=== PATIENT | female | born 1940 | race Caucasian/White ===

== ENCOUNTER → 2017-10-14 11:36 | Outpatient (CLI) | payer MEDICARE, OTHER, SELFPAY ==
[2017-10-14 12:09] LABS: Add Manual Diff / Slide Review NO; Basophils Percent Auto 0.9 % (0-2); Hematocrit 37.9 % (36-46); Hemoglobin 13.1 g/dL (12.0-16.0); Lymphocytes Percent Auto 30.1 % (25-40); Mean Corpuscular HGB Conc 34.6 % (30-36); Mean Corpuscular Hemoglobin 31.3 PG (26-34); Mean Corpuscular Volume 90.6 fL (80-100); Monocytes Percent Auto 6.6 % (3-14); Neutrophils Absolute Auto 3300 /uL (3000-5900); Neutrophils Percent Auto 60.4 % (50-75); Platelet Count 216 X10^3/uL (150-400); Red Blood Cell Count 4.18 X10^6/uL (4.0-5.2); Red Cell Distribution Width 14.9 % (11.6-14.8); White Blood Cell Count 5.4 X10^3/uL (4.5-11.0)
[2017-10-14 12:11] LABS: Reticulocyte Count, Percent 1.9 % (1.06-2.63)
[2017-10-14 13:50] LABS: HEMOLYSIS < 15 (0-50); Iron 91 ug/dL (37-170)
[2017-10-14 13:54] LABS: Albumin 4.3 g/dL (3.5-5.0); BUN Creatinine Ratio 24.3 (6-22); Blood Urea Nitrogen 17 mg/dL (7-17); Calcium 9.8 mg/dL (8.4-10.2); Carbon Dioxide 29 mmol/L (22-32); Chloride 103 mmol/L (98-107); Estimated Glomerular Filt Rate > 60.0 mL/min (>60); Glucose 92 mg/dL (80-110); HEMOLYSIS < 15 (0-50); Potassium 4.4 mmol/L (3.4-5.1); Sodium 143 mmol/L (137-145)
[2017-10-14 14:01] LABS: Percent Iron Saturation 30 % (15-50); Total Iron Binding Capacity 304 ug/dL (265-497); Transferrin 243 mg/dL (206-381)
[2017-10-14 14:02] LABS: Prealbumin 24.9 mg/dL (17.6-36.0)
[2017-10-14 14:27] LABS: Ferritin 55.4 ng/mL (11.1-264)
[2017-10-14 14:41] LABS: Vitamin B12 381 pg/mL (239-931)
[2017-10-20 13:27] LABS: Ionized Calcium 4.9
== END ==
PROVIDERS: Visit Provider Internal Medicine Gastroenterology
DX: D64.9 Anemia, unspecified (principal); K56.609 Unspecified intestinal obstruction, unspecified as to partial versus complete obstruction; D64.0 Hereditary sideroblastic anemia
CPT/HCPCS: 36415; 80048; 82040; 82330; 82607; 82728; 83540; 83550; 84134; 85025; 85045

== ENCOUNTER → 2017-10-15 11:07 | Outpatient (CLI) | payer MEDICARE, OTHER, SELFPAY ==
--- NOTE | 2017-10-15 | DI.MG.S_ITS ---
BILATERAL DIGITAL SCREENING MAMMOGRAM 3D/2D WITH CAD: 10/15/2017 CLINICAL: Routine screening. Comparison is made to exams dated: 01/01/2016 mammogram, 12/24/2015 mammogram, and 04/16/2014 mammogram - Located Within [facility]. The tissue of both breasts is heterogeneously dense. This may lower the sensitivity of mammography. Current study was also evaluated with a Computer Aided Detection (CAD) system. No significant masses, calcifications, or other findings are seen in either breast. There has been no significant interval change. IMPRESSION: NEGATIVE There is no mammographic evidence of malignancy. A 1 year screening mammogram is recommended. This exam was interpreted at Station ID: [id number]. NOTE: For mammograms, a report in lay terms will be sent to the patient. Approximately 15% of breast malignancies will not be visualized mammographically. In the management of a palpable breast mass, a negative mammogram must not discourage biopsy of a clinically suspicious lesion. Electronically Signed By: Alberto leung/[email or web address]:10/15/2017 15:42:55 letter sent: Normal Exam ACR BI-RADS Category 1: Negative [id number]
== END ==
PROVIDERS: Visit Provider Family Medicine
DX: Z12.31 Encounter for screening mammogram for malignant neoplasm of breast (principal)
CPT/HCPCS: 77063; 77067

== ENCOUNTER → 2018-09-01 11:06 | Outpatient (CLI) | payer MEDICARE, OTHER, SELFPAY ==
[2018-09-01 12:09] LABS: Add Manual Diff / Slide Review NO; Basophils Absolute Auto 0 /uL (0-100); Basophils Percent Auto 0.4 % (0-2); Eosinophils Absolute Auto 0 /uL (0-450); Eosinophils Percent Auto 0.5 % (2-4); Hematocrit 37.5 % (36-46); Hemoglobin 12.4 g/dL (12.0-16.0); Lymphocytes Absolute Auto 1600 /uL (1100-4500); Lymphocytes Percent Auto 16.7 % (25-40); Mean Corpuscular HGB Conc 33.1 % (30-36); Mean Corpuscular Hemoglobin 29.9 PG (26-34); Mean Corpuscular Volume 90.5 fL (80-100); Monocytes Absolute Auto 600 /uL (0-900); Monocytes Percent Auto 6.3 % (3-14); Neutrophils Absolute Auto 7500 /uL (1500-7000); Neutrophils Percent Auto 76.1 % (50-75); Platelet Count 338 X10^3/uL (150-400); Red Blood Cell Count 4.15 X10^6/uL (4.0-5.2); Red Cell Distribution Width 15.1 % (11.6-14.8); White Blood Cell Count 9.8 X10^3/uL (4.5-11.0)
[2018-09-01 12:25] LABS: Alanine Aminotransferase 23 IU/L (9-52); Albumin 4.1 g/dL (3.5-5.0); Alkaline Phosphatase 121 U/L (38-126); Aspartate Aminotransferase 23 IU/L (14-36); Bilirubin Total 0.4 mg/dL (0.2-1.3); Blood Urea Nitrogen 21 mg/dL (7-17); Calcium 9.3 mg/dL (8.4-10.2); Carbon Dioxide 29 mmol/L (22-32); Chloride 102 mmol/L (98-107); Cholesterol 154 mg/dL (140-199); Estimated Glomerular Filt Rate > 60.0 mL/min (>60); Glucose 85 mg/dL (80-110); HDL Cholesterol 37 mg/dL (40-60); HEMOLYSIS < 15 (0-50); LDL Cholesterol Calculated 95 mg/dL (<100); Potassium 4.6 mmol/L (3.4-5.1); Sodium 140 mmol/L (137-145); Total Protein 8.1 g/dL (6.3-8.2); Triglycerides 111 mg/dL (35-150)
[2018-09-01 13:07] LABS: TSH w/ Reflex to FT4 1.41 uIU/mL (0.47-4.68)
== END ==
PROVIDERS: PCP Internal Medicine; Visit Provider Internal Medicine
DX: R63.4 Abnormal weight loss (principal); E78.2 Mixed hyperlipidemia
CPT/HCPCS: 36415; 80053; 80061; 84443; 85025

== ENCOUNTER → 2018-09-15 13:38 | Outpatient (CLI) | payer MEDICARE, OTHER, SELFPAY ==
--- NOTE | 2018-09-15 | DI.CT.S_ITS ---
PROCEDURE: CT KIDNEY URETER BLADDER (KUB) INDICATIONS: Cardiac arrhythmia Left upper quadrant pain TECHNIQUE: Noncontrast 5 mm thick sections acquired from the diaphragms to the symphysis. 5 mm thick coronal and sagittal reformats were then performed. For radiation dose reduction, the following was used: automated exposure control, adjustment of mA and/or kV according to patient size. COMPARISON: [facility], CT, CT CHEST WO CON, 09/15/2018, 13:44. [facility], CT, THORAX WITHOUT CONTRAST, 10/23/2008, 9:58. FINDINGS: Image quality: Excellent. Lung bases: Lung bases are unchanged, with chronic lung disease and discussed during chest CT report earlier today. Heart size is normal. Urinary system: Both kidneys are normal in size. No kidney stones. No hydronephrosis or perinephric fat stranding. Both ureters appear non-dilated throughout their expected courses. Bladder wall thickness is normal; no calcified bladder stones. Other solid organs: Liver is normal in size. Multiple hepatic cysts again seen. Gallbladder appears normal. Pancreas is normal in contours. Spleen is normal in size. No adrenal nodules. Peritoneum and bowel: Unenhanced bowel loops demonstrate normal wall thickness and caliber. No free fluid or air. Nodes and vessels: No retroperitoneal or mesenteric adenopathy by size criteria. Aorta and inferior vena cava are normal in caliber. Abdominal wall: No ventral hernias. Pelvis: No free pelvic fluid. No inguinal hernias or adenopathy. Bones: No suspicious bony lesions. No vertebral body compression fractures. IMPRESSION: Source of chronic left-sided flank pain radiating anteriorly is not seen. Chronic lung disease, multiple stable appearing hepatic water density cysts again noted. Dictated by: Haroon London M.D. on 09/15/2018 at 16:04 Approved by: Haroon London M.D. on 09/15/2018 at 16:30
--- NOTE | 2018-09-15 | DI.CT.S_ITS ---
PROCEDURE: CT CHEST WO CON INDICATIONS: Cardiac arrhythmia Left upper quadrant pain TECHNIQUE: Noncontrast 5 mm thick sections acquired from the pulmonary apices to the posterior costophrenic angles. 7 mm thick coronal and sagittal MIP reformats were then acquired. For radiation dose reduction, the following was used: automated exposure control, adjustment of mA and/or kV according to patient size. COMPARISON: [facility], CT, CHEST HIGH RESOLUTION, 01/29/2012, 12:20. [facility], CT, CT KIDNEY URETER BLADDER (KUB), 09/15/2018, 13:44. FINDINGS: Image quality: Excellent. Lungs and pleura: No acute air space opacities. There is a pattern of patchy bilateral interstitial and alveolar lung disease, with areas of superimposed centrilobular emphysema and anterior bronchiectasis present within the right middle lobe predominantly in the medial segment and also the lingular segment of the left upper lobe near the left ventricular apex. A growing mass lesion is not found. An area of focal pneumonia as the explanation for the asymmetric left upper quadrant is not seen. There is no abnormality below the left hemidiaphragm to explain left upper quadrant pain. No pleural effusions or pneumothorax. Central and peripheral airways are patent and normal in caliber. Mediastinum: Heart size is normal. No pericardial effusion. No mediastinal adenopathy by size criteria. Thoracic aorta and central pulmonary arteries are normal in size. Esophagus is normal in caliber. No hiatal hernia. Bones and chest wall: No suspicious bony lesions. No vertebral body compression fractures. No axillary or supraclavicular adenopathy by size criteria. Thyroid gland is poorly visualized by this noncontrast technique. Abdomen: Visualized upper abdominal solid organs and bowel loops appear normal in the absence of contrast. Hepatic multiple cysts are again noted of varying size from millimeters to 5.5 cm. IMPRESSION: An appreciable change from the chronic lung disease pattern present 01/29/12 and also with reference to the recent CT KUB study 09/15/18 earlier same day has not developed. COPD, centrilobular emphysema, bronchiectasis, and both interstitial and alveolar focal infiltration is again identified from 2011. A source of asymmetric left upper quadrant pain is not found. Dictated by: Haroon London M.D. on 09/15/2018 at 15:39 Approved by: Haroon London M.D. on 09/15/2018 at 15:44
--- NOTE | 2018-09-15 | DI.ECHO.S_ITS ---
[facility]+ [facility] +---------+ : : [address] : [place] : : : : [id number] : : : : Phone: [phone]+ Echocardiogram Report + + :Name: BARB SINGH Study Date: 09/15/2018 Height: 66 in : :[facility] Weight: 126 lb : : Gender: Female BSA: 1.6 m2 : :: 1940 Age: 77 yrs BP: 138/66 mmHg: :Reason For Study: Arrhythmia : : Performed By: Mery Vallejo : :Referring: ELSY BRICEÑO : + + Interpretation Summary Left ventricular systolic function is low normal with the ejection fraction visually estimated to be 50-60% with considerable [id number] variability because of the frequent PVCs. There are no focal wall motion abnormalities. Diastolic parameters suggest probable normal left ventricular diastolic function and normal filling pressures. The right ventricle grossly appears normal in size with probable normal systolic function. The right ventricular systolic pressure is estimated to be at least 30 mmHg based on an estimated right atrial pressure of 3 mm Hg. Both atria are normal in size. There is a flat closure plane of the the mitral valve leaflets but no evidence of mitral valve prolapse. There is mild to moderate mitral regurgitation with an eccentric jet of mitral regurgitation that is directed posteriorly. The aortic valve opens well with mild to moderate aortic regurgitation. There is mild tricuspid regurgitation. The aortic root is borderline dilated and the ascending aorta is mildly enlarged. The heart rate was 46-94 bpm with frequent PVCs during the exam. Multiple large hepatic cysts are noted within the liver. Consider formal abdominal ultrasound if clinically indicated. Procedure: A two-dimensional transthoracic echocardiogram with color flow and Doppler was performed. The study quality was technically good. There is no prior echocardiogram noted for this patient. The heart rate ranged between 46- 84 bpm during the study. The patient had frequent PVCs during the exam. Left Ventricle: The left ventricle is normal in size. There is normal left ventricular wall thickness. Left ventricular systolic function is low normal. Left ventricular ejection fraction is estimated to be 50-60% with considerable [id number] variability because of the frequent PVCs. There are no focal wall motion abnormalities. Diastolic parameters suggest probable normal left ventricular diastolic function and normal filling pressures. Right Ventricle: The right ventricle grossly appears normal in size with probable normal systolic function. Atria: Both atria are normal in size. The interatrial septum is intact with no evidence for an atrial septal defect. Mitral Valve: The mitral valve leaflets appear borderline thickened, but open well. There is a flat closure plane of the the mitral valve leaflets. There is no evidence of mitral valve prolapse. There is mild to moderate mitral regurgitation. There is an eccentric jet of mitral regurgitation that is directed posteriorly. Aortic Valve: The aortic valve is trileaflet. The aortic valve opens well. There is mild to moderate aortic regurgitation. Tricuspid Valve: The tricuspid valve is normal in structure and function. There is mild tricuspid regurgitation. The right ventricular systolic pressure is estimated to be at least 30 mmHg based on an estimated right atrial pressure of 3 mm Hg. Pulmonic Valve: The pulmonic valve is not well seen, but is grossly normal. There is trace pulmonic regurgitation. Great Vessels: The aortic root is borderline dilated. The ascending aorta is mildly enlarged. The aortic arch is normal in size. The inferior vena cava appeared normal. Pericardium/ Pleura There is no pericardial effusion. There is no pleural effusion. MMode/2D Measurements & Calculations LVIDd: 4.9 cm Ao root diam: 3.8 cm LVIDs: 2.8 cm Aortic Jxn: 2.9 cm FS: 42.4 % asc Aorta Diam: 3.5 cm EPSS: 0.67 cm Ao Arch Diam (Prox Trans): 2.6 cm IVSd: 0.89 cm LVPWd: 0.86 cm LV moses. diameter/BSA (cm/m^2): 3.0 LV sys. diameter/BSA (cm/m^2): 1.7 LA dimension: 3.4 cm RA long axis: 3.9 cm LA A2 area: 17.2 cm2 RA area: 13.5 cm2 LA A4 area: 14.6 cm2 RA vol: 39.5 ml LA length (vol): 4.5 cm RA : 24.0 ml/m2 LA vol: 48.0 ml IVC diam: 1.5 cm LA vol index: 29.2 ml/m2 RVDd major: 5.9 cm RVD1 (basal): 3.1 cm RVD2 (mid): 2.7 cm Doppler Measurements & Calculations Ao V2 max: 114.7 cm/sec AI P1/2t: 339.5 msec Ao V2 mean: 76.5 cm/sec AI dec slope: 369.3 cm/sec2 Ao max P.3 mmHg Ao mean P.7 mmHg Ao V2 VTI: 22.5 cm MV E max aj: 56.5 cm/sec TR max aj: 259.9 cm/sec MV A max aj: 74.1 cm/sec TR max P.0 mmHg MV E/A: 0.76 PA V2 max: 89.1 cm/sec Med Peak E' Aj: 4.7 cm/sec PA V2 mean: 62.2 cm/sec E/E' med: 11.9 PA mean P.8 mmHg Lat Peak E' Aj: 3.8 cm/sec PA Accel Time: 0.11 sec E/E' lat: 14.9 E/e' average: 13.4 MV dec time: 0.28 sec MV P1/2t: 81.7 msec MV P1/2t max aj: 57.9 cm/sec MVA(P1/2t): 2.7 cm2 Reading Physician:ADAN
== END ==
PROVIDERS: PCP Internal Medicine; Visit Provider Internal Medicine
DX: I08.3 Combined rheumatic disorders of mitral, aortic and tricuspid valves (principal); I49.9 Cardiac arrhythmia, unspecified; R10.12 Left upper quadrant pain; K76.89 Other specified diseases of liver; I77.89 Other specified disorders of arteries and arterioles; J43.2 Centrilobular emphysema; J47.9 Bronchiectasis, uncomplicated; J84.9 Interstitial pulmonary disease, unspecified
CPT/HCPCS: 71250; 74176; 93306

== ENCOUNTER → 2018-09-28 09:12 | Outpatient (CLI) | payer MEDICARE, OTHER, SELFPAY | PROVIDERS: PCP Internal Medicine; Visit Provider Internal Medicine Critical Care Medicine | DX: J47.1 Bronchiectasis with (acute) exacerbation (principal) | CPT/HCPCS: 87070; 87116; 87205 ==

== ENCOUNTER → 2018-09-29 08:00 | Outpatient (CLI) | payer MEDICARE, OTHER, SELFPAY | PROVIDERS: PCP Internal Medicine; Visit Provider Internal Medicine Critical Care Medicine | DX: J47.1 Bronchiectasis with (acute) exacerbation (principal) | CPT/HCPCS: 87070; 87116; 87205 ==

== ENCOUNTER → 2018-09-30 09:38 | Outpatient (CLI) | payer MEDICARE, OTHER, SELFPAY | PROVIDERS: PCP Internal Medicine; Visit Provider Internal Medicine Critical Care Medicine | DX: J47.1 Bronchiectasis with (acute) exacerbation (principal) | CPT/HCPCS: 87070; 87116; 87205 ==

== ENCOUNTER → 2019-02-02 10:28 | Outpatient (CLI) | payer MEDICARE, OTHER, SELFPAY ==
--- NOTE | 2019-02-02 | DI.US.S_ITS ---
PROCEDURE: US PELVIC COMPLETE INDICATIONS: ABNORMAL UTERINE AND VAGINAL BLEEDING, UNSPECIFIED Additional history: Hysterectomy in 2010. Prior oophrectomy. Unsure if remaining ovary. TECHNIQUE: Real-time scanning was performed of the pelvic organs, with image documentation. Additional endovaginal scanning was necessary due to incomplete visualization of the adnexal and endometrial structures by transabdominal scanning. COMPARISON: CT KUB 09/15/2018. FINDINGS: Transabdominal scanning: Limited scanning through the kidneys shows no hydronephrosis. No pathologic free abdominal or pelvic fluid. Simple cyst at the inferior pole of the right kidney measuring a 2.4 centers. Endovaginal scanning: Patient reports tenderness with insertion of the transvaginal probe. Uterus: Surgically absent. Ovaries: No ovary identified. No mass or cystic lesion. IMPRESSION: Negative exam. No free fluid. Uterus is surgically absent. Vaginal cuff is unremarkable. The ovaries are presumed absent and not identified. Dictated by: Pepe Conteh M.D. on 02/02/2019 at 12:07 Approved by: Pepe Conteh M.D. on 02/02/2019 at 12:13
== END ==
PROVIDERS: PCP Internal Medicine; Visit Provider Internal Medicine
DX: N93.9 Abnormal uterine and vaginal bleeding, unspecified (principal); N28.1 Cyst of kidney, acquired; Z90.710 Acquired absence of both cervix and uterus
CPT/HCPCS: 76830; 76856

== ENCOUNTER → 2019-04-11 11:35 | Outpatient (CLI) | payer MEDICARE, OTHER, SELFPAY ==
--- NOTE | 2019-04-11 11:39 | DI.CT.S_ITS ---
PROCEDURE: CT CHEST WO CON INDICATIONS: Chronic obstructive pulmonary disease with (acute) TECHNIQUE: Noncontrast 2.0-2.5 mm thick sections acquired from the pulmonary apices to the posterior costophrenic angles. 7 mm thick axial MIP and 5 mm coronal and sagittal reformats were then acquired. A low radiation dose technique was utilized. COMPARISON: [facility], CT, CT KIDNEY URETER BLADDER (KUB), 09/15/2018, 13:44. [facility], CT, CHEST HIGH RESOLUTION, 01/29/2012, 12:20. [facility], CT, THORAX WITHOUT CONTRAST, 10/23/2008, 9:58. [facility], CR, CHEST 2 VIEW, 10/14/2016, 18:42. [facility], CT, CT CHEST WO CON, 09/15/2018, 13:44. FINDINGS: Image quality: Diagnostic, given the low radiation dose technique. Lungs and pleura: There are innumerable nodules bilaterally. Many nodules demonstrate tree-in-bud configuration. There is associated cystic bronchiectasis bilaterally, predominantly involving the right middle lobe and lingula. The CT findings are most compatible with sequelae of granulomatous infections. There may be mild underlying centrilobular emphysema. No acute airspace opacity. No enlarging mass. Compared to the last exam on 09/15/2018, there is no significant change. Mediastinum: Heart size is normal. No pericardial effusion. Borderline enlarged mediastinal lymph nodes are likely reactive. Thoracic aorta and central pulmonary arteries are normal in size. Esophagus is normal in caliber. No hiatal hernia. Bones and chest wall: No suspicious bony lesions. Mild vertebral body compression fracture of L1, which is new since 09/15/2018. No axillary or supraclavicular adenopathy by size criteria. Thyroid gland is normal. Nodular appearance of breasts bilaterally. Abdomen: There are multiple cysts in liver. Visualized upper abdomen solid organs and bowel loops appear normal in the absence of contrast. IMPRESSION: 1. Innumerable pulmonary nodules bilaterally with tree-in-bud configuration and associated bronchiectasis predominantly involving the right middle lobe and lingula, most compatible with sequelae of prior infections. There may be mild underlying centrilobular emphysema. 2. Borderline-sized reactive lymph nodes in mediastinum. 3. Multiple hepatic cysts. 4. Nodularity of breast tissue bilaterally. Please correlate with findings on mammography. 5. Mild compression fracture of L1, new since 09/15/2018. Dictated by: Carrol Dai M.D. on 04/11/2019 at 11:52 Transcribed by: [email or web address] on 04/11/2019 at 12:16 Approved by: Carrol Dai M.D. on 04/11/2019 at 18:03
== END ==
PROVIDERS: PCP Internal Medicine; Referring Provider Psychiatry & Neurology Forensic Psychiatry; Visit Provider Internal Medicine
DX: J44.0 Chronic obstructive pulmonary disease with (acute) lower respiratory infection (principal); R91.8 Other nonspecific abnormal finding of lung field; K76.89 Other specified diseases of liver; N64.89 Other specified disorders of breast; M48.56XA Collapsed vertebra, not elsewhere classified, lumbar region, initial encounter for fracture
CPT/HCPCS: 71250

== ENCOUNTER → 2019-10-25 12:41 | Outpatient (CLI) | payer MEDICARE, OTHER, SELFPAY ==
[2019-10-25 13:38] LABS: Add Manual Diff / Slide Review NO; Basophils Absolute Auto 0 /uL (0-100); Basophils Percent Auto 1.1 % (0-2); Eosinophils Absolute Auto 100 /uL (0-450); Eosinophils Percent Auto 2.3 % (2-4); Hematocrit 39.7 % (36-46); Lymphocytes Absolute Auto 1500 /uL (1100-4500); Lymphocytes Percent Auto 37.5 % (25-40); Mean Corpuscular HGB Conc 35.2 % (30-36); Mean Corpuscular Hemoglobin 32.4 PG (26-34); Mean Corpuscular Volume 91.9 fL (80-100); Monocytes Absolute Auto 300 /uL (0-900); Monocytes Percent Auto 8.1 % (3-14); Neutrophils Absolute Auto 2000 /uL (1500-7000); Platelet Count 213 X10^3/uL (150-400); Red Blood Cell Count 4.32 X10^6/uL (4.0-5.2); Red Cell Distribution Width 13.9 % (11.6-14.8)
[2019-10-25 14:01] LABS: Alanine Aminotransferase 15 IU/L (<35); Albumin 4.5 g/dL (3.5-5.0); Albumin Globulin Ratio 1.7 (1.0-2.8); Alkaline Phosphatase 53 U/L (38-126); Aspartate Aminotransferase 23 IU/L (14-36); BUN Creatinine Ratio 25.7 (6-22); Bilirubin Total 0.7 mg/dL (0.2-1.3); Blood Urea Nitrogen 19 mg/dL (7-17); Calcium 9.9 mg/dL (8.4-10.2); Carbon Dioxide 29 mmol/L (22-32); Chloride 105 mmol/L (98-107); Cholesterol 199 mg/dL (140-199); Estimated Glomerular Filt Rate > 60.0 mL/min (>60); Globulin 2.7 g/dL (1.7-4.1); Glucose 90 mg/dL (80-110); HDL Cholesterol 68 mg/dL (40-60); HEMOLYSIS < 15 (0-50); LDL Cholesterol Calculated 107 mg/dL (<100); Potassium 4.3 mmol/L (3.4-5.1); Sodium 141 mmol/L (137-145); Total Protein 7.2 g/dL (6.3-8.2); Triglycerides 120 mg/dL (35-150)
[2019-10-25 14:30] LABS: TSH w/ Reflex to FT4 1.96 uIU/mL (0.47-4.68)
[2019-10-25 14:48] LABS: Vitamin B12 433 pg/mL (239-931)
== END ==
PROVIDERS: PCP Internal Medicine; Referring Provider Internal Medicine; Visit Provider Internal Medicine
DX: E78.2 Mixed hyperlipidemia (principal); E53.8 Deficiency of other specified B group vitamins; R53.83 Other fatigue
CPT/HCPCS: 36415; 80053; 80061; 82607; 84443; 85025

== ENCOUNTER 2019-11-25 14:46 | Emergency (ER) | payer MEDICARE, OTHER, SELFPAY ==
[2019-11-25 15:01] VITALS: BP 135/69; PULSE 89; RESP 15; TEMP 36.6; O2SAT 97; BMI 23.3
--- NOTE | 2019-11-25 15:14 | ED.FALL ---
HPI - Fall <NURIA Frost-BC - Last Filed: 11/25/19 18:48> General Chief Complaint: Fall Stated Complaint: fell, hit head Time Seen by Provider: 11/25/19 15:04 Source: patient and family Mode of arrival: Ambulatory Limitations: no limitations History of Present Illness HPI Narrative: The patient is an 79-year-old female with history of memory issues who presents with a chief complaint of a ground level fall. She tripped and fell walking along the sidewalk at the [facility] with her . She states that she tripped on a clamp across clot was in between the sidewalk. states that it was a trip and fall, was mechanical, not related to syncope etc.. Patient agrees with this statement. She presents stating that her head her as she hit a on pavement, she states she has a goose egg on her head. She denies any loss of consciousness, does complain of slight dizziness after the fall. She also complains of left wrist pain. She is not exactly sure how she landed on her left wrist. The fall happened approximately 1 hour prior to arrival to the emergency department. She denies any neck or back pain, denies any hip pain, denies any leg pain. She presents also because she is concerned about her head and the goose egg on her forehead. Modified trauma activated upon arrival given the patient's age and mechanism of injury. Tetanus is up-to-date per patient and her . Related Data Allergies Allergy/AdvReac Type Severity Reaction Status Date / Time codeine [CODEINE] Allergy Unknown upset Unverified 08/04/17 12:05 stomach Review of Systems <SHIMON Frost - Last Filed: 11/25/19 18:48> Review of Systems Narrative: GENERAL: Denies chills, fatigue, malaise, fever, sweats. HEENT: Denies sinus pain, ear pain, sore throat, difficulty swallowing, dizziness. RESPIRATORY: Denies dyspnea, cough, wheezing, hemoptysis, sputum. CARDIOVASCULAR: Denies chest pain, palpitations, orthopnea, edema, GASTROINTESTINAL: Denies nausea, vomiting, abdominal pain, diarrhea, constipation, melena. : Denies dysuria, frequency, incontinence, hematuria, urinary retention. MUSCULOSKELETAL: See HPI SKIN: Denies rash, skin lesions, or other NEUROLOGIC: See HPI PSYCHIATRIC: No concerning psychosocial issues. 12 point review of systems is negative except for those stated above Patient History <Lisa FeltonSHIMON - Last Filed: 11/25/19 18:48> Social History Smoking Status: Former smoker Smoking Status: Former smoker alcohol intake frequency: 0-2 drinks per day Substance Use Type: does not use Exam <Lisa Felton SHIMON - Last Filed: 11/25/19 18:48> Narrative Exam Narrative: GENERAL: This is a well-nourished, well-developed patient, in no acute distress HEAD: Goose egg noted right side of forehead. No temporal or scalp tenderness. EYES: Pupils equal round and reactive. Extraocular motions intact. No scleral icterus. No injection or drainage. ENT: Nose without bleeding, purulent drainage or septal hematoma. Throat without erythema, tonsillar hypertrophy or exudate. Uvula midline. Airway patent. NECK: Trachea midline. No JVD or lymphadenopathy. Supple, nontender, no meningeal signs. CARDIOVASCULAR: Regular rate and rhythm RESPIRATORY: Clear to auscultation. Breath sounds equal bilaterally. No wheezes, rales, or rhonchi. No cough. No increased respiratory effort. No accessory muscle use. GASTROINTESTINAL: Abdomen soft, non-tender, nondistended. No hepato-splenomegaly, or palpable masses. No guarding. EXTREMITIES: Pain to palpation left wrist on dorsum. Slight swelling noted. No pain to snuffbox palpation. Decreased range of motion all rodriguez. Positive left pulse. Cap refill less than 2 seconds fingers and hand. BACK: Nontender without deformity or crepitance. No flank tenderness. NEURO: AOx3. SKIN: No Austin signs of periorbital ecchymosis noted. Skinned knees. Initial Vital Signs Initial Vital Signs: Vital Signs Temperature 97.8 F 11/25/19 15:01 Pulse Rate 89 11/25/19 15:01 Respiratory Rate 15 11/25/19 15:01 Blood Pressure 135/69 11/25/19 15:01 Pulse Oximetry 97 11/25/19 15:01 <Patrick Vega MD - Last Filed: 11/26/19 19:22> Initial Vital Signs Initial Vital Signs: Vital Signs Temperature 97.8 F 11/25/19 15:01 Pulse Rate 89 11/25/19 15:01 Respiratory Rate 15 08/01/20 15:01 Blood Pressure 135/69 11/25/19 15:01 Pulse Oximetry 97 11/25/19 15:01 Scores <SHIMON Frost - Last Filed: 11/25/19 18:48> GCS Glendy coma scale eye opening: Spontaneous [place] coma scale verbal response: Orientated Gl[place]y coma scale motor response: Obey commands Glendy coma scale total score: 15 Course <SHIMON Frost - Last Filed: 11/25/19 18:48> Orders Ordered: ED Orders 11/25/19 15:13 CT cervical spine wo con Stat CT head/brain wo con Stat XR wrist LT min 3V Stat Vital Signs Vital signs: Vital Signs - 8 hr 11/25/19 15:01 11/25/19 16:53 Temperature 97.8 F Pulse Rate 89 76 Respiratory Rate 15 15 Blood Pressure 135/69 152/71 H Pulse Oximetry 97 97 <Patrick Vega MD - Last Filed: 11/26/19 19:22> Orders Ordered: ED Orders 11/25/19 15:13 CT cervical spine wo con Stat CT head/brain wo con Stat XR wrist LT min 3V Stat Vital Signs Vital signs: Vital Signs - 8 hr 11/25/19 15:01 11/25/19 16:53 Temperature 97.8 F Pulse Rate 89 76 Respiratory Rate 15 15 Blood Pressure 135/69 152/71 H Pulse Oximetry 97 97 MDM - Fall <SHIMON Frost - Last Filed: 11/25/19 18:48> Imaging Data Extremity x-ray #1: Radiologist's Impression: [address] [address] XRay Report Signed Patient: Radha Chow [facility]#: [id number] : 1940Acct:[id number] Age/Sex: 79 / FDate of Service: 11/25/19 Loc: ED Accession Number: [id number] Procedure: XR wrist LT min 3V Ordering Provider: Lisa Felton PROCEDURE: XR WRIST LT MIN 3V INDICATIONS: pain sp fall TECHNIQUE: 4 views of the wrist were acquired. COMPARISON: None. FINDINGS: Bones: No fractures or dislocations. No suspicious bony lesions. Diffuse osteopenia. Soft tissues: No suspicious soft tissue calcifications. IMPRESSION: No fracture. If the patient's symptoms do not improve recommend followup radiographs in 10 days to assess for healing sclerosis/occult injury. Diffuse osteopenia Dictated by: Antwan Bolanos M.D. on 11/25/2019 at 16:01 Approved by: Antwan Bolanos M.D. on 11/25/2019 at 16:02 CT scan - head: Radiologist's Impression: [address] [address] [address] Scan Report Signed Patient: Radha Chow [facility]#: [id number] : 1940Acct:[id number] Age/Sex: 79 / FDate of Service: 11/25/19 Loc: ED Accession Number: [id number] Procedure: CT head/brain wo con Ordering Provider: Lisa Felton PROCEDURE: CT HEAD/BRAIN WO CON INDICATIONS: glf TECHNIQUE: Noncontrast 4.5 mm thick angled axial sections acquired from the foramen magnum to the vertex, with coronal and sagittal reformats. For radiation dose reduction, the following was used: automated exposure control, adjustment of mA and/or kV according to patient size. COMPARISON: None. FINDINGS: Image quality: Excellent. CSF spaces: Basal cisterns are patent. No extra-axial fluid collections. The ventricles are symmetric in size and shape. Brain: No intracranial bleeds or masses. There is cerebral volume loss for age, with resultant ventricular and sulcal prominence. There are periventricular and deep white matter chronic small vessel ischemic changes. There is intracranial internal carotid artery atherosclerosis. Skull and face: There is a right forehead scalp hematoma seen, as on series 2, image 17. No underlying calvarial fracture is seen. Calvarium and visualized facial bones appear intact, without suspicious lesions. Sinuses: Moderate mucosal thickening is seen involving the right maxillary sinus. The paranasal sinuses otherwise appear clear. No abnormal fluid is seen within the mastoid air cells. IMPRESSION: Right forehead scalp hematoma, without an underlying calvarial fracture. No acute intracranial hemorrhage is seen. No acute intracranial process is seen. Note is made of age-appropriate brain parenchymal volume loss and chronic small vessel ischemic changes. Focal right maxillary sinus disease incidentally noted. Dictated by: Altaf Christina M.D. on 11/25/2019 at 15:16 Approved by: Altaf Christina M.D. on 11/25/2019 at 15:17 CT - cervical spine: Radiologist's Impression: [address] [place] [address] CT Scan Report Signed Patient: Radha Chow [facility]#: [id number] : 1940Acct:[id number] Age/Sex: 79 / FDate of Service: 11/25/19 Loc: ED Accession Number: [id number] Procedure: CT cervical spine wo con Ordering Provider: Lisa Felton PROCEDURE: CT CERVICAL SPINE WO CON INDICATIONS: glf TECHNIQUE: Noncontrast 3 mm thick sections acquired from the skull base to the T4 level. Sagittal and coronal reformats were then constructed. For radiation dose reduction, the following was used: automated exposure control, adjustment of mA and/or kV according to patient size. COMPARISON: [facility], CT, CT CHEST WO CON, 04/11/2019, 11:36. [facility], CT, CT HEAD/BRAIN WO CON, 11/25/2019, 15:24. [facility], CR, XR WRIST LT MIN 3V, 11/25/2019, 15:23. FINDINGS: Image quality: Excellent. Bones: No fractures or dislocations. Visualized superior ribs are intact. Cervical spine degenerative changes are seen, with moderate disc space narrowing at C4-C5 and at least moderate disc space narrowing at C5-C6. Endplate irregularity and sclerosis are seen, which are most prominent at C5-C6. Milder degenerative changes are seen elsewhere. Soft tissues: Prevertebral soft tissues are normal in thickness. No paravertebral hematomas. No apical pneumothoraces. Mild apparent scarring is can be seen at the lung apices. IMPRESSION: Negative for fracture. Cervical spine degenerative changes seen, which are most prominent at C5-C6. Dictated by: Altaf Christina M.D. on 11/25/2019 at 15:17 Approved by: Altaf Christina M.D. on 11/25/2019 at 15:20 [facility] Narrative Medical decision making narrative: Motor the patient is an 79-year-old female who presents after ground level fall earlier today. She had no loss of consciousness. She has a goose egg on her head, given age and mechanism of injury, modified trauma was activated. Head CT has no acute findings. Cannot RO clear the patient's C-spine due to memory issues, so she was immobilized and CT was obtained with no acute findings. X-ray has no acute findings regarding her wrist. I discussed at length rest ice compression elevation, taking it easy over the next few days. Both patient and her her adamant that the fall was mechanical. Encouraged follow-up with primary care provider in the next few days. Patient has no questions or concerns upon discharge and states understanding return precautions as well as follow-up care. She has been hemodynamically stable and ambulating well throughout her stay in the emergency department. Discharge Plan Departure Patient Disposition: Home Clinical Impression: Fall from ground level Concussion Qualifiers: Encounter type: initial encounter Loss of consciousness presence/duration: without LOC Qualified Code(s): S06.0X0A - Concussion without loss of consciousness, initial encounter Acute wrist pain Qualifiers: Laterality: left Qualified Code(s): M25.532 - Pain in left wrist Contusion Qualifiers: Encounter type: initial encounter Contusion area: head Contusion of head detail: scalp Qualified Code(s): S00.03XA - Contusion of scalp, initial encounter Discharge Date/Time: 11/25/19 17:20 Instructions: DI for Concussion, DI for Contusion, How To Perform RICE (Rest, Ice, Compress, Elevate), How to Prevent Falls, DI for Wrist Pain Activity Restrictions/Additional Instructions: Thank you for trusting us with your care today. As a discussed all your imaging came back well. Regarding your wrist, your x-ray shows no acute fracture. This does not rule out a soft tissue injury such as a ligament or tendon injury. It is important that you follow up with primary care provider, especially if worsening or no improvement. There can be fractures that did not show up on initial x-ray. Please take it easy over the next few days, use [id number] medications as well as ice packs as needed and able Please come back to emergency department for any acute concerns Please follow-up with primary care provider in the next few days, preferably in 48-72 hours Referrals: Ed Pulliam MD [Primary Care Provider] -
[2019-11-25 16:53] VITALS: BP 152/71; PULSE 76; RESP 15; O2SAT 97
== END 2019-11-25 17:20 | disposition home or self-care (01) ==
PROVIDERS: Emergency Provider Nurse Practitioner Family; PCP Internal Medicine
DX: S06.0X0A Concussion without loss of consciousness, initial encounter (principal); M25.532 Pain in left wrist; S00.03XA Contusion of scalp, initial encounter; W01.0XXA Fall on same level from slipping, tripping and stumbling without subsequent striking against object, initial encounter
CPT/HCPCS: 70450; 72125; 73110; 99284

== ENCOUNTER → 2019-12-13 11:37 | Outpatient (CLI) | payer MEDICARE, OTHER, SELFPAY ==
--- NOTE | 2019-12-13 | DI.MG.S_ITS ---
BILATERAL DIGITAL SCREENING MAMMOGRAM 3D/2D WITH CAD: 12/13/2019 CLINICAL: Routine screening. Comparison is made to exams dated: 10/15/2017 mammogram, 01/01/2016 mammogram, 12/24/2015 mammogram, and 04/16/2014 mammogram - [facility]. The tissue of both breasts is heterogeneously dense. This may lower the sensitivity of mammography. Current study was also evaluated with a Computer Aided Detection (CAD) system. There are benign vascular calcifications in the left breast. No significant masses, calcifications, or other findings are seen in either breast. There has been no significant interval change. IMPRESSION: BENIGN There is no mammographic evidence of malignancy. A 1 year screening mammogram is recommended. This exam was interpreted at Station ID: [id number]. NOTE: For mammograms, a report in lay terms will be sent to the patient. Approximately 15% of breast malignancies will not be visualized mammographically. In the management of a palpable breast mass, a negative mammogram must not discourage biopsy of a clinically suspicious lesion. Electronically Signed By: Mary Jane swanson/idania:12/13/2019 12:32:00 letter sent: Normal Exam ACR BI-RADS Category 2: Benign Finding(s) 3342F
== END ==
PROVIDERS: PCP Internal Medicine; Referring Provider Internal Medicine; Visit Provider Internal Medicine
DX: Z12.31 Encounter for screening mammogram for malignant neoplasm of breast (principal)
CPT/HCPCS: 77063; 77067

== ENCOUNTER → 2020-01-11 12:08 | Outpatient (CLI) | payer MEDICARE, OTHER, SELFPAY ==
--- NOTE | 2020-01-11 | DI.RAD.S_ITS ---
PROCEDURE: XR CHEST 2V INDICATIONS: SHORTNESS BREATH TECHNIQUE: 2 views of the chest were acquired. COMPARISON: [facility], CT, CT CHEST WO CON, 04/11/2019, 11:36. [facility], CR, CHEST 2 VIEW, 10/14/2016, 18:42. FINDINGS: Surgical changes and devices: None. Lungs and pleura: Lungs are abnormal, now with elevation of the right hemidiaphragm and mild interval worsening of chronic lung disease at each lung base, blurring the left ventricular apex and causing indistinct margination of what can be seen of the medial segment right middle lobe. No pleural effusions or pneumothorax. Mediastinum: Mediastinal contours are normal. Heart size is normal. Bones and chest wall: No suspicious bony abnormalities. Soft tissues appear unremarkable. IMPRESSION: Prior CT scanning has shown a chronic lung disease pattern with bilateral lung base anterior bronchiectasis. The most recent comparison study that includes a chest plain film equivalent is the scanogram from chest CT scanning 04/11/19. Reactivation of chronic infection within the areas of prior lung disease would be suspected. Contrast-enhanced CT scanning may become necessary. Dictated by: Haroon London M.D. on 01/11/2020 at 13:08 Approved by: Haroon London M.D. on 01/11/2020 at 13:16
== END ==
PROVIDERS: PCP Internal Medicine; Referring Provider Internal Medicine; Visit Provider Internal Medicine
DX: R06.02 Shortness of breath (principal); J47.9 Bronchiectasis, uncomplicated
CPT/HCPCS: 71046

== ENCOUNTER 2020-07-06 14:15 | Emergency (ER) | payer MEDICARE, OTHER, SELFPAY ==
[2020-07-06 14:26] VITALS: BP 134/65; PULSE 91; RESP 16; TEMP 36.4; O2SAT 97; BMI 21.6
--- NOTE | 2020-07-06 15:25 | PC.NURSE ---
dried blood in pubic hair cleaned in order to seperate labia for straight cath. Patient tolerated procedure well. JUSTYN Salazar assisted, patient at bedside.
[2020-07-06 15:29] LABS: Bilirubin Urine UA NEGATIVE (NEGATIVE); Glucose Urine UA NEGATIVE (Negative); Ketones Urine UA 1+ (NEGATIVE); Leukocyte Esterase Urine UA NEGATIVE (NEGATIVE); Nitrite Urine UA NEGATIVE (Negative); Occult Blood Urine UA 3+ (Negative); Protein Urine UA 2+ (Negative); Urobilinogen Urine UA 0.2 E.U./dL (0.2); WBC Urine None Seen (0-5/HPF)
[2020-07-06 15:39] LABS: Appearance Urine UA Cloudy; Color Urine UA BROWN; pH Urine UA 6.5 (4.5-8.0)
[2020-07-06 15:41] LABS: RBC Urine >100/HPF (0-5/HPF)
[2020-07-06 15:42] LABS: Bacteria Urine Few (2-10); Culture Indicated Urine Cult Not Indicated
--- NOTE | 2020-07-06 15:47 | PC.NURSE ---
reddened area 3cm x 2cm with sveral diffuse 2-4mm blisters present. not draining, open to air. states it was simply a red area a few days ago and then all these blisters started popping up.
--- NOTE | 2020-07-06 16:33 | DI.US.S_ITS ---
PROCEDURE: US PELVIC COMPLETE INDICATIONS: VAGINAL BLEEDING TECHNIQUE: Real-time scanning was performed of the pelvic organs, with image documentation. Additional endovaginal scanning was necessary due to incomplete visualization of the adnexal and endometrial structures by transabdominal scanning. COMPARISON: [facility], PELVIC COMPLETE, 02/02/2019, 10:50. FINDINGS: Uterus: Surgically absent Ovaries: Surgically absent adnexal structures are unremarkable. Other: No pathologic free abdominal or pelvic fluid. IMPRESSION: Surgically absent ovaries and uterus. No free fluid. Dictated by: Dodie Blount M.D. on 07/06/2020 at 18:09 Approved by: Dodie Blount M.D. on 07/06/2020 at 18:09
[2020-07-06 17:23] LABS: Alanine Aminotransferase 25 IU/L (<35); Albumin 4.3 g/dL (3.5-5.0); Albumin Globulin Ratio 1.3 (1.0-2.8); Alkaline Phosphatase 90 U/L (38-126); Aspartate Aminotransferase 25 IU/L (14-36); BUN Creatinine Ratio 51.7 (6-22); Bilirubin Total 0.8 mg/dL (0.2-1.3); Blood Urea Nitrogen 31 mg/dL (7-17); Calcium 9.8 mg/dL (8.4-10.2); Carbon Dioxide 32 mmol/L (22-32); Chloride 106 mmol/L (98-107); Estimated Glomerular Filt Rate > 60.0 mL/min (>60); Globulin 3.3 g/dL (1.7-4.1); Glucose 96 mg/dL (80-110); HEMOLYSIS < 15 (0-50); Potassium 3.6 mmol/L (3.4-5.1); Sodium 144 mmol/L (137-145); Total Protein 7.6 g/dL (6.3-8.2)
[2020-07-06 17:26] LABS: Add Manual Diff / Slide Review NO; Basophils Absolute Auto 0 /uL (0-100); Basophils Percent Auto 0.4 % (0-2); Eosinophils Absolute Auto 0 /uL (0-450); Eosinophils Percent Auto 0.4 % (2-4); Hematocrit 41.8 % (36-46); Hemoglobin 14.3 g/dL (12.0-16.0); Lymphocytes Absolute Auto 1300 /uL (1100-4500); Lymphocytes Percent Auto 12.7 % (25-40); Mean Corpuscular HGB Conc 34.1 % (30-36); Mean Corpuscular Hemoglobin 31.3 PG (26-34); Mean Corpuscular Volume 91.9 fL (80-100); Monocytes Absolute Auto 600 /uL (0-900); Monocytes Percent Auto 5.4 % (3-14); Neutrophils Absolute Auto 8300 /uL (1500-7000); Neutrophils Percent Auto 81.1 % (50-75); Platelet Count 336 X10^3/uL (150-400); Red Blood Cell Count 4.55 X10^6/uL (4.0-5.2); Red Cell Distribution Width 14.6 % (11.6-14.8); White Blood Cell Count 10.2 X10^3/uL (4.5-11.0)
[2020-07-06] MEDS: valACYclovir 500 MG TABLET 1000 MG PO (18:23)
[2020-07-06] MEDS: TRIMETH/SULFA 160/800 (DS) TABLET 1 TAB PO (18:23)
[2020-07-06 18:30] VITALS: BP 151/69; RESP 16; TEMP 36.4; O2SAT 94
--- NOTE | 2020-07-06 18:48 | ED.FEMALEGU ---
HPI - Female Genitourinary <SHIMON Frost - Last Filed: 07/06/20 19:02> General Chief complaint: Urogenital-Female Stated complaint: BLEEDING FROM BLADDER Time Seen by Provider: 07/06/20 15:58 Source: patient and family Limitations: altered mental status History of Present Illness HPI Narrative: The patient is an 79-year-old female former smoker with history of severe dementia who presents with a chief complaint of bleeding from her bladder. Her notes that he change her depends on Wednesday and noticed a little bit of blood in her depends. She also went to the restroom yesterday and they were noted to have blood in her urine. The patient has significant dementia, states no to all questions. She recently flew home from [place] this morning, where she was recently inpatient in the hospital for pneumonia versus CHF. She had a Diehl catheter at that time. The patient's notes that she had a hysterectomy. Denies any fevers or vomiting. Denies any diarrhea. No so she has a blistering rash that appeared on her right hip, blister started today. The patient 's states that hospice will be at their house to do an evaluation tomorrow. Also notes that he has a very strong preference to take her home tonight and he does not want her admitted to the hospital at this point. Related Data Previous Rx's Medication Instructions Recorded sulfamethoxazole-trimethoprim 1 tab PO BID #14 tab 07/06/20 [Bactrim DS] valacyclovir 1,000 mg PO TID 7 Days #21 tab 07/06/20 Allergies Allergy/AdvReac Type Severity Reaction Status Date / Time codeine [CODEINE] Allergy Unknown upset Verified 07/06/20 15:21 stomach Review of Systems <SHIMON Frost - Last Filed: 07/06/20 19:02> Review of Systems ROS Unobtainable: Unobtainable due to mental condition Patient History <SHIMON Frost - Last Filed: 07/06/20 19:02> alcohol intake frequency: 0-2 drinks per day Substance Use Type: does not use Exam <SHIMON Frost - Last Filed: 07/06/20 19:02> Narrative Exam Narrative: GENERAL: This is a well-nourished, well-developed patient, in no acute distress HEAD: Atraumatic. Normocephalic. No temporal or scalp tenderness. EYES: Pupils equal round and reactive. Extraocular motions intact. No scleral icterus. No injection or drainage. ENT: Nose without bleeding, purulent drainage or septal hematoma. Wearing a mask Airway patent. NECK: Trachea midline. No JVD or lymphadenopathy. Supple, nontender, no meningeal signs. CARDIOVASCULAR: Regular rate and rhythm RESPIRATORY: Clear to auscultation. Breath sounds equal bilaterally. No wheezes, rales, or rhonchi. Occasional cough. No increased respiratory effort. No accessory muscle use. GASTROINTESTINAL: Abdomen soft, non-tender, nondistended. No hepato-splenomegaly, or palpable masses. No guarding. Active bowel sounds all 4 quadrants EXTREMITIES: No clubbing, cyanosis, or edema. No joint tenderness, effusion, or edema noted. BACK: Nontender without deformity or crepitance. No CVA tenderness bilaterally NEURO: Alert, answers no to all questions SKIN: Cluster of vesicles noted on right hip, no drainage Initial Vital Signs Initial Vital Signs: Vital Signs Temperature 97.6 F 07/06/20 14:26 Pulse Rate 91 H 07/06/20 14:26 Respiratory Rate 16 07/06/20 14:26 Blood Pressure 134/65 07/06/20 14:26 Pulse Oximetry 97 07/06/20 14:26 <Lisa Harrington DO - Last Filed: 07/07/20 13:27> Initial Vital Signs Initial Vital Signs: Vital Signs Temperature 97.6 F 07/06/20 14:26 Pulse Rate 91 H 07/06/20 14:26 Respiratory Rate 16 07/06/20 14:26 Blood Pressure 134/65 07/06/20 14:26 Pulse Oximetry 97 07/06/20 14:26 Course <NURIA Frost-BC - Last Filed: 07/06/20 19:02> Orders Ordered: Discontinued Medications Trimethoprim/Sulfamethoxazole (Trimeth/Sulfa 160/800 (Ds) Tablet) 1 tab PO NOW ONE Stop: 07/06/20 18:10 Last Admin: 07/06/20 18:23 Dose: 1 tab Documented by: MARIBELL Valacyclovir HCl (Valacyclovir 500 Mg Tablet) 1,000 mg PO NOW ONE Stop: 07/06/20 18:10 Last Admin: 07/06/20 18:23 Dose: 1,000 mg Documented by: MARIBELL Vital Signs Vital signs: Vital Signs - 8 hr 07/06/20 14:26 07/06/20 18:30 Temperature 97.6 F 97.6 F Pulse Rate 91 H Respiratory Rate 16 16 Blood Pressure 134/65 151/69 H Pulse Oximetry 97 94 <Lisa Harrington DO - Last Filed: 07/07/20 13:27> Orders Ordered: Discontinued Medications Trimethoprim/Sulfamethoxazole (Trimeth/Sulfa 160/800 (Ds) Tablet) 1 tab PO NOW ONE Stop: 07/06/20 18:10 Last Admin: 07/06/20 18:23 Dose: 1 tab Documented by: MARIBELL Valacyclovir HCl (Valacyclovir 500 Mg Tablet) 1,000 mg PO NOW ONE Stop: 07/06/20 18:10 Last Admin: 07/06/20 18:23 Dose: 1,000 mg Documented by: MARIBELL Vital Signs Vital signs: Vital Signs - 8 hr 07/06/20 14:26 07/06/20 18:30 Temperature 97.6 F 97.6 F Pulse Rate 91 H Respiratory Rate 16 16 Blood Pressure 134/65 151/69 H Pulse Oximetry 97 94 MDM - Female Genitourinary <NURIA Frost- - Last Filed: 07/06/20 19:02> Lab Data Attestation: I reviewed the patient's lab results. Result diagrams: 07/06/20 17:00 07/06/20 17:00 Labs: Lab Results 07/06/20 07/06/20 07/06/20 Range/Units 15:15 17:00 17:00 WBC 10.2 (4.5-11.0) X10^3/uL RBC 4.55 (4.0-5.2) X10^6/uL Hgb 14.3 (12.0-16.0) g/dL Hct 41.8 (36-46) % MCV 91.9 (80-100) fL MCH 31.3 (26-34) PG MCHC 34.1 (30-36) % RDW 14.6 (11.6-14.8) % Plt Count 336 (150-400) X10^3/uL Neut % (Auto) 81.1 H (50-75) % Lymph % (Auto) 12.7 L (25-40) % [place] % (Auto) 5.4 (3-14) % Eos % (Auto) 0.4 L (2-4) % Baso % (Auto) 0.4 (0-2) % Neut # (Auto) 8300 H (1904-5107) /uL Lymph # (Auto) 1300 (8676-1302) /uL [place] # (Auto) 600 (0-900) /uL Eos # (Auto) 0 (0-450) /uL Baso # (Auto) 0 (0-100) /uL Sodium 144 (137-145) mmol/L Potassium 3.6 (3.4-5.1) mmol/L Chloride 106 (98-107) mmol/L Carbon Dioxide 32 (22-32) mmol/L BUN 31 H (7-17) mg/dL Creatinine 0.60 (0.52-1.04) mg/dL Estimated GFR > 60.0 (>60) mL/min BUN/Creatinine Ratio 51.7 H (6-22) Glucose 96 (80-110) mg/dL Calcium 9.8 (8.4-10.2) mg/dL Total Bilirubin 0.8 (0.2-1.3) mg/dL AST 25 (14-36) IU/L ALT 25 (<35) IU/L Alkaline Phosphatase 90 (38-126) U/L Total Protein 7.6 (6.3-8.2) g/dL Albumin 4.3 (3.5-5.0) g/dL Globulin 3.3 (1.7-4.1) g/dL Albumin/Globulin Ratio 1.3 (1.0-2.8) Urine Color Brown Urine Appearance Cloudy Urine pH 6.5 (4.5-8.0) Ur Specific [place] 1.020 (1.000-1.035) Urine Protein 2+ H (Negative) Urine Glucose (UA) Negative (Negative) g/dL Urine Ketones 1+ H (NEGATIVE) Urine Occult Blood 3+ H (Negative) Urine Nitrate Negative (Negative) Urine Bilirubin Negative (NEGATIVE) Urine Urobilinogen 0.2 (0.2) E.U./dL Ur Leukocyte Esterase Negative (NEGATIVE) Urine RBC >100/hpf H (0-5/HPF) Urine WBC None seen (0-5/HPF) Urine Bacteria Few (2-10) H (None) Ur Culture Indicated? 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 Additional endovaginal scanning was necessary due to incomplete visualization of the adnexal and endometrial structures by transabdominal scanning. COMPARISON: [facility], PELVIC COMPLETE, 02/02/2019, 10:50. FINDINGS: Uterus: Surgically absent Ovaries: Surgically absent adnexal structures are unremarkable. Other: No pathologic free abdominal or pelvic fluid. IMPRESSION: Surgically absent ovaries and uterus. No free fluid. Dictated by: Dodie Blount M.D. on 07/06/2020 at 18:09 Approved by: Dodie Blount M.D. on 07/06/2020 at 18:09 MDM Narrative Medical decision making narrative: The patient is an 79-year-old female who presents with a chief complaint of bleeding from her bladder. is also concerned about the possibility of vaginal bleeding, though ultrasound shows no acute findings. Her urine is very concerning for infection with blood, Bacteria, cloudy appearance. Will start on Bactrim for urinary tract infection. Rash shows evidence of shingles due to vesicles, will start patient on valacyclovir. The patient is very difficult historian at this point, and patient's has a very strong preference to take her home tonight as hospice is going to the house tomorrow. Discussed patient evaluation and plan with Dr. Harrington. I think at this point is understandable to not pursue any of further aggressive measures, and patient's was requesting to be discharged multiple times. I did discuss at length that they are able to come back to the emergency department for any acute concerns at any point including fever, inability keep down fluids etcetera. Patient was given 1st doses of antibiotics as well as antivirals in the emergency department. Urine cultures pending at this time. Patient's has been has no questions or concerns upon discharge states understanding of return precautions as well as follow-up care. <Lisa Harrington, DO - Last Filed: 07/07/20 13:27> Lab Data Labs: Lab Results 07/06/20 07/06/20 07/06/20 Range/Units 15:15 17:00 17:00 WBC 10.2 (4.5-11.0) X10^3/uL RBC 4.55 (4.0-5.2) X10^6/uL Hgb 14.3 (12.0-16.0) g/dL Hct 41.8 (36-46) % MCV 91.9 (80-100) fL MCH 31.3 (26-34) PG MCHC 34.1 (30-36) % RDW 14.6 (11.6-14.8) % Plt Count 336 (150-400) X10^3/uL Neut % (Auto) 81.1 H (50-75) % Lymph % (Auto) 12.7 L (25-40) % [place] % (Auto) 5.4 (3-14) % Eos % (Auto) 0.4 L (2-4) % Baso % (Auto) 0.4 (0-2) % Neut # (Auto) 8300 H (0020-7521) /uL Lymph # (Auto) 1300 (7344-1729) /uL [place] # (Auto) 600 (0-900) /uL Eos # (Auto) 0 (0-450) /uL Baso # (Auto) 0 (0-100) /uL Sodium 144 (137-145) mmol/L Potassium 3.6 (3.4-5.1) mmol/L Chloride 106 (98-107) mmol/L Carbon Dioxide 32 (22-32) mmol/L BUN 31 H (7-17) mg/dL Creatinine 0.60 (0.52-1.04) mg/dL Estimated GFR > 60.0 (>60) mL/min BUN/Creatinine Ratio 51.7 H (6-22) Glucose 96 (80-110) mg/dL Calcium 9.8 (8.4-10.2) mg/dL Total Bilirubin 0.8 (0.2-1.3) mg/dL AST 25 (14-36) IU/L ALT 25 (<35) IU/L Alkaline Phosphatase 90 (38-126) U/L Total Protein 7.6 (6.3-8.2) g/dL Albumin 4.3 (3.5-5.0) g/dL Globulin 3.3 (1.7-4.1) g/dL Albumin/Globulin Ratio 1.3 (1.0-2.8) Urine Color Brown Urine Appearance Cloudy Urine pH 6.5 (4.5-8.0) Ur Specific [place] 1.020 (1.000-1.035) Urine Protein 2+ H (Negative) Urine Glucose (UA) Negative (Negative) g/dL Urine Ketones 1+ H (NEGATIVE) Urine Occult Blood 3+ H (Negative) Urine Nitrate Negative (Negative) Urine Bilirubin Negative (NEGATIVE) Urine Urobilinogen 0.2 (0.2) E.U./dL Ur Leukocyte Esterase Negative (NEGATIVE) Urine RBC >100/hpf H (0-5/HPF) Urine WBC None seen (0-5/HPF) Urine Bacteria Few (2-10) H (None) Ur Culture Indicated? Cult not indicated Discharge Plan Departure Patient Disposition: Home Clinical Impression: Urinary tract infection Qualifiers: Urinary tract infection type: site unspecified Hematuria presence: with hematuria Qualified Code(s): N39.0 - Urinary tract infection, site not specified Shingles Qualifiers: Herpes zoster complications: without complications Qualified Code(s): B02.9 - Zoster without complications Instructions: DI for Shingles, DI for Urinary Tract Infection (UTI) Activity Restrictions/Additional Instructions: Thank you for trusting us with your care today As discussed, your lab work is reassuring but your urine shows signs of infection. I did send in a prescription of an antibiotic to [facility]. Her rash is also concerning for shingles. I sent in an antiviral for this. Please follow-up with primary care provider in the next few days. Please come back to emergency department for any acute concerns, including abdominal pain with fever, inability keep down fluids etcetera Prescriptions: New sulfamethoxazole-trimethoprim [Bactrim DS] 800-160 mg tablet 1 tab PO BID Qty: 14 RF: 0 valacyclovir 1 gram tablet 1,000 mg PO TID 7 Days Qty: 21 RF: 0 Referrals: Ed Pulliam MD [Primary Care Provider] - <Lisa Harrington DO - Last Filed: 07/07/20 13:27> Cosign ED Attending Cosignature Attestation: I was immediately available in the department for consultation. Documentation has been reviewed.
== END 2020-07-06 18:52 | disposition home or self-care (01) ==
PROVIDERS: Emergency Medicine; Emergency Provider Nurse Practitioner Family; PCP Internal Medicine
DX: N39.0 Urinary tract infection, site not specified (principal); R31.9 Hematuria, unspecified; B02.9 Zoster without complications
CPT/HCPCS: 36415; 51798; 76856; 80053; 81001; 85025; 99283; 99284